=== PATIENT | female | born 1945 | race Caucasian/White ===

== ENCOUNTER 2016-05-20 20:34 | Emergency (ER) | payer MEDICARE, MEDICAID ==
[2016-05-20 20:52] VITALS: BP 136/68
--- NOTE | 2016-05-20 21:37 | EDM.PDOC ---
ED HISTORY OF PRESENT ILLNESS - General Chief Complaint: Chest Pain Stated Complaint: HEART IS FLUTTERING Time Seen by Provider: 05/20/16 20:50 Source of Information: Reports: Patient, Old records, RN notes reviewed History Limitations: Reports: No limitations - History of Present Illness INITIAL COMMENTS - FREE TEXT/NARRATIVE: The patient states that she developed a rapid/pounding heartbeat sometime early this afternoon, then developed the sensation of a fluttering in her chest around 15:30, which she states that she is still experiencing (normal sinus rhythm at 83 bpm on the monitor). The patient states that she has had this previously. Review of the medical records indicates that the patient has a history of paroxysmal atrial fibrillation, initially diagnosed 01/25/2016, when the patient was sent over from the [facility] for atrial fibrillation, and atrial fibrillation was seen on the waiter/waitress buffet, although the patient spontaneously converted to a normal sinus rhythm prior to the ECG been performed. The patient has subsequently been to this ED numerous times for similar symptoms of palpitations. ALL ECGs on record demonstrating normal sinus rhythm , however, the patient is seen by the Brand Coordinator Dr. Rice in [place], and has the patient on Cardizem and Eliquis. The patient has a history of severe anxiety, and may not be able to distinguish anxiety from atrial fibrillation. - Related Data Allergies/ADRs: Allergies Allergy/AdvReac Type Severity Reaction Status Date / Time No Known Allergies Allergy Verified 03/11/16 17:15 Home Meds: Home Meds Citalopram [Citalopram HBr] 20 mg PO DAILY 10/29/13 [History] LORazepam [Ativan] 0.5 mg PO DAILY PRN 10/29/13 [History] Metoprolol Succinate 50 mg PO DAILY 10/30/13 [History] Cholecalciferol (Vitamin D3) [Vitamin D3] 1,000 units PO DAILY 12/31/13 [History ] Albuterol [IJD: Ventolin HFA] 2 puff INH Q6H PRN 01/25/16 [History] Budesonide/Formoterol Fumarate [Symbicort 80-4.5 Mcg Inhaler] 2 puff IH BID [History] Diltiazem HCl [Diltiazem 24Hr Cd] 120 mg PO DAILY #30 cap.er.24h 01/25/16 [Rx] Losartan [Cozaar] 25 mg PO DAILY 01/25/16 [History] Travoprost [Travatan Z 0.004% Ophth Soln] 2.5 ml EYEBOTH BEDTIME 01/25/16 [ History] Potassium Chloride [Klor-Con Sprinkle] 1 tab PO DAILY 02/10/16 [History] Apixaban [Eliquis] 5 mg PO BID 03/11/16 [History] Past Medical History HEENT History: Reports: Glaucoma Cardiovascular History: Reports: Afib (paroxysmal), High cholesterol, Hypertension Respiratory History: Reports: Asthma Musculoskeletal History: Reports: Osteoporosis Psychiatric History: Reports: Anxiety (severe), Depression, OCD (washes her hands frequently) Endocrine/Metabolic History: Reports: Vitamin D deficiency Hematologic History: Reports: B12 deficiency - Past Surgical History HEENT Surgical History: Reports: Cataract surgery Social & Family History - Family History Family Medical History: Noncontributory - Tobacco Use Smoking Status *Q: Never Smoker Second Hand Smoke Exposure: No - Caffeine Use Caffeine Use: Reports: None - Alcohol Use Alcohol Use History: No - Recreational Drug Use Recreational Drug Use: No - Living Situation & Occupation Living situation: Reports: single, alone Occupation: retired ED ROS GENERAL - Review of Systems Review Of Systems: See Below Constitutional: Reports: no symptoms HEENT: Reports: No symptoms Respiratory: Reports: No Symptoms Cardiovascular: Reports: No symptoms Endocrine: Reports: no symptoms GI/Abdominal: Reports: No symptoms : Reports: no symptoms Musculoskeletal: Reports: no symptoms Skin: Reports: no symptoms Neurological: Reports: No Symptoms Psychiatric: Reports: Anxiety Hematologic/Lymphatic: Reports: no symptoms Immunologic: Reports: no symptoms ED EXAM, GENERAL - Physical Exam Exam: See Below Exam Limited By: No limitations General Appearance: alert, WD/WN, anxious Eye Exam: bilateral eye: EOMI, normal inspection Ears: normal external exam, hearing grossly normal Ear Exam: bilateral ear: auricle normal Nose: normal inspection, no blood Throat/Mouth: Normal inspection, Normal lips, Normal voice, No airway compromise Head: atraumatic, normocephalic Neck: normal inspection, full range of motion Respiratory/Chest: no respiratory distress, lungs clear, normal breath sounds, no accessory muscle use Cardiovascular: normal peripheral pulses, regular rate, rhythm, no gallop, no JVD, no murmur, no rub Peripheral Pulses: 4+: radial (L), radial (R) GI/Abdominal: normal bowel sounds, soft, non tender, no organomegaly, no distention, no abnormal bruit, no mass (Female) Exam: Deferred Rectal (Female) Exam: Deferred Back Exam: normal inspection, full range of motion, NT Extremities: normal inspection, normal range of motion, no pedal edema, normal capillary refill Neurological: alert, oriented, normal cognition, no motor/sensory deficits Psychiatric: normal affect, anxious Skin Exam: Warm, Dry, Intact, Normal color, No rash Lymphatic: no adenopathy EKG INTERPRETATION EKG Date: 05/20/16 Time: 20:57 Rhythm: NSR Rate (beats/min): 77 [place]: normal P-wave: present QRS: normal ST-T: normal QT: normal Comparison: no change (03/11/2016) Course - Vital Signs Last Recorded V/S: Last Vital Signs Temp 36.3 C 05/20/16 20:43 Pulse 85 05/20/16 20:43 Resp 12 05/20/16 20:43 BP 136/68 05/20/16 20:43 Pulse Ox 99 05/20/16 20:43 - Orders/Labs/Meds Orders: Active Orders 24 hr Category Date Time Status EKG 12 Lead [EKG Documentation Completion] [RC] STAT Care 05/20/16 21:46 Active - Re-Assessments/Exams Free Text/Narrative Re-Assessment/Exam: 05/20/16 21:35 The patient reports a rapid/pounding heartbeat, developing into a fluttering sensation this afternoon, however, here in the ED, she is in normal sinus rhythm. Reviewing the medical records, I find that she has a history of paroxysmal atrial fibrillation. She is already being treated with Cardizem and Eliquis. No further workup is required today. Departure - Departure Time of Disposition: 21:36 Disposition: Home, Self-Care 01 Condition: good Clinical Impression: Palpitations Instructions: Palpitations, [id number] Referrals: Dejah Moeller MD [Primary Care Provider] - Forms: ED Department Discharge Additional Instructions: You were seen in the emergency room for the feeling of a rapid/pounding heartbeat, developing into a fluttering sensation. Once in the ER, you were found to be in a normal sinus rhythm. Since you have a history of paroxysmal atrial fibrillation, it is possible that you had an episode today. We recommend that you continue to take your medications as previously prescribed. Followup with your PCP, Dr. Dejah Moeller, or your Brand Coordinator, Dr. Rice , as needed. If any other problems, please do not hesitate to return to the ER. - My Orders Last 24 Hours: My Active Orders 05/20/16 21:46 EKG 12 Lead [EKG Documentation Completion] [RC] STAT - Assessment/Plan Last 24 Hours: My Active Orders 05/20/16 21:46 EKG 12 Lead [EKG Documentation Completion] [RC] STAT
== END 2016-05-20 22:05 | disposition home or self-care (01) ==
LOC: JD.ED 20:34
DX: R00.2 Palpitations (principal); I10 Essential (primary) hypertension; E78.00 Pure hypercholesterolemia, unspecified; J45.909 Unspecified asthma, uncomplicated; M81.0 Age-related osteoporosis without current pathological fracture; F41.8 Other specified anxiety disorders; Z98.49 Cataract extraction status, unspecified eye; Z79.899 Other long term (current) drug therapy
CPT/HCPCS: 93005; 99283; 99285-25

== ENCOUNTER 2016-11-27 18:43 | Emergency (ER) | payer MEDICARE, MEDICAID ==
[2016-11-27 19:04] VITALS: BP 137/55
--- NOTE | 2016-11-27 19:28 | EDM.PDOC ---
ED HPI GENERAL MEDICAL PROBLEM - General Chief Complaint: Gastrointestinal Problem Stated Complaint: DIARRHEA Time Seen by Provider: 11/27/16 19:01 Source of Information: Reports: Patient, RN Notes Reviewed - History of Present Illness INITIAL COMMENTS - FREE TEXT/NARRATIVE: 71-year-old female comes in with complaint of diarrhea. This first started about 9 days ago. She states that her refrigerator is not working properly and parts of it are warmer than what it should be. She tries to keep mainly vegetables in that area but is concerned that maybe this refrigerator problem may have contributed to the start of her diarrhea if some of her food could've gotten "bad". The diarrhea was more severe initially, watery and somewhat frequent. It has slowly been getting better but she still is having 1 or 2 loose stools per day. Her BMs are no longer watery. No longer has abdominal pain or cramping. There has been no nausea vomiting fever or chills. She is scheduled to take off on a bus trip to [place] in about 4 days and is concerned about traveling in her current condition. - Related Data Allergies Allergy/AdvReac Type Severity Reaction Status Date / Time No Known Allergies Allergy Verified 03/11/16 17:15 Home Meds: Home Meds Citalopram [Citalopram HBr] 20 mg PO DAILY 10/29/13 [History] LORazepam [Ativan] 0.5 mg PO DAILY PRN 10/29/13 [History] Metoprolol Succinate 50 mg PO DAILY 10/30/13 [History] Cholecalciferol (Vitamin D3) [Vitamin D3] 1,000 units PO DAILY 12/31/13 [History ] Albuterol [IJD: Ventolin HFA] 2 puff INH Q6H PRN 01/25/16 [History] Budesonide/Formoterol Fumarate [Symbicort 80-4.5 Mcg Inhaler] 2 puff IH BID [History] Diltiazem HCl [Diltiazem 24Hr Cd] 120 mg PO DAILY #30 cap.er.24h 01/25/16 [Rx] Losartan [Cozaar] 25 mg PO DAILY 01/25/16 [History] Travoprost [Travatan Z 0.004% Ophth Soln] 2.5 ml EYEBOTH BEDTIME 01/25/16 [ History] Potassium Chloride [Klor-Con Sprinkle] 1 tab PO DAILY 02/10/16 [History] Apixaban [Eliquis] 5 mg PO BID 03/11/16 [History] Past Medical History HEENT History: Reports: Glaucoma Cardiovascular History: Reports: Afib, High Cholesterol, Hypertension Other Cardiovascular History: SVT, low potassium Respiratory History: Reports: Asthma Musculoskeletal History: Reports: Osteoporosis Other Musculoskeletal History: OSTEOPENIA Psychiatric History: Reports: Anxiety, Depression, OCD Other Psychiatric History: wash hands very frequently Endocrine/Metabolic History: Reports: Vitamin D Deficiency Other Endocrine/Metabolic History: vitamin b12 deficiency Hematologic History: Reports: B12 Deficiency - Past Surgical History HEENT Surgical History: Reports: Cataract Surgery Social & Family History - Family History Family Medical History: Noncontributory - Tobacco Use Smoking Status *Q: Never Smoker Second Hand Smoke Exposure: No - Caffeine Use Caffeine Use: Reports: None - Recreational Drug Use Recreational Drug Use: No - Living Situation & Occupation Living situation: Reports: Single, Alone Occupation: Retired ED ROS GENERAL - Review of Systems Review Of Systems: See Below Constitutional: Denies: Fever, Chills HEENT: Reports: No Symptoms Respiratory: Denies: Shortness of Breath Cardiovascular: Denies: Chest Pain GI/Abdominal: Reports: Abdominal Pain (Non-), Diarrhea (Now loose stools only once or twice per day). Denies: Decreased Appetite, Nausea, Vomiting Musculoskeletal: Reports: No Symptoms Skin: Reports: No Symptoms Neurological: Reports: No Symptoms ED EXAM, GI/ABD - Physical Exam Exam: See Below General Appearance: Alert, Anxious Eyes: Bilateral: Normal Appearance Throat/Mouth: Normal Inspection, Normal Oropharynx Head: No: Facial Swelling Neck: Supple, Full Range of Motion Respiratory/Chest: No Respiratory Distress, Lungs Clear, Normal Breath Sounds Cardiovascular: Regular Rate, Rhythm GI/Abdominal Exam: Soft, Non-Tender. No: Guarding Extremities: Normal Inspection Neurological: Alert, Oriented, No Motor/Sensory Deficits Skin Exam: Warm, Dry, Normal Color Course - Vital Signs Last Recorded V/S: Last Vital Signs Temp 98.2 F 11/27/16 19:00 Pulse 78 11/27/16 19:00 Resp 16 11/27/16 19:00 BP 137/55 L 11/27/16 19:00 Pulse Ox 98 11/27/16 19:00 Departure - Departure Time of Disposition: 19:35 Disposition: Home, Self-Care 01 Condition: Fair Clinical Impression: Diarrhea - Discharge Information Instructions: Diarrhea, Adult, [id number] Referrals: Dejah Moeller MD [Primary Care Provider] - Forms: ED Department Discharge Additional Instructions: Continue clear liquids and bland diet as tolerated. Begin probiotic and take that twice daily for 5 days and than once daily for the next 5 days. That will help you get over the diarrhea more quickly. Pick that up at your pharmacy tomorrow morning. It is available OTC. Your pharmacist can recomend a good brand for you.
== END 2016-11-27 19:45 | disposition home or self-care (01) ==
LOC: JD.ED 18:43
DX: R19.7 Diarrhea, unspecified (principal); Z79.899 Other long term (current) drug therapy; I48.91 Unspecified atrial fibrillation; E78.00 Pure hypercholesterolemia, unspecified; I10 Essential (primary) hypertension; J45.909 Unspecified asthma, uncomplicated; F41.9 Anxiety disorder, unspecified; F32.9 Major depressive disorder, single episode, unspecified; F42.9 Obsessive-compulsive disorder, unspecified
CPT/HCPCS: 99283; 99284